=== PATIENT | male | born 1935 | race Native Hawaiian/Other Pacific Islander ===

== ENCOUNTER 2016-04-27 09:54 | Outpatient (CLI) | payer OTHER ==
[~2016-04-27 09:54] MED LIST: ASA LOW DOSE81 MG PO; BUDE1AER5 INH; CARV25TA PO; GLIP10TA55 PO; LIPITOR80 MG PO; LISI5TAB10 PO; METF500T PO; PLAVIX75 MG PO; PROAIR HFA IN
[2016-04-27 10:36] LABS: POTASSIUM 4.2 mmol/L (3.6-5.2); SODIUM 136 mmol/L (136-145)
== END 2016-04-27 19:53 | disposition home or self-care (01) ==
LOC: LABW 09:54
PROVIDERS: Nurse Practitioner Adult Health
DX: Z79.01 Long term (current) use of anticoagulants (principal); Z79.899 Other long term (current) drug therapy; I48.0 Paroxysmal atrial fibrillation; Z51.81 Encounter for therapeutic drug level monitoring
CPT/HCPCS: 36415; 80053; 85610

== ENCOUNTER 2016-05-04 10:09 | Outpatient (CLI) | payer OTHER | END 2016-05-04 20:09 | disposition home or self-care (01) | LOC: LABW 10:09 | DX: Z79.01 Long term (current) use of anticoagulants (principal); Z79.899 Other long term (current) drug therapy; I48.0 Paroxysmal atrial fibrillation; Z51.81 Encounter for therapeutic drug level monitoring | CPT/HCPCS: 36415; 85610 ==

== ENCOUNTER 2016-05-11 08:32 | Outpatient (CLI) | payer OTHER | END 2016-05-11 23:00 | disposition home or self-care (01) | LOC: LABW 08:32 | DX: Z79.01 Long term (current) use of anticoagulants (principal); Z79.899 Other long term (current) drug therapy; I48.0 Paroxysmal atrial fibrillation; Z51.81 Encounter for therapeutic drug level monitoring | CPT/HCPCS: 36415; 85610 ==

== ENCOUNTER 2016-05-18 08:18 | Outpatient (CLI) | payer OTHER | END 2016-05-18 20:10 | disposition home or self-care (01) | LOC: LABW 08:18 | DX: Z79.01 Long term (current) use of anticoagulants (principal); Z79.899 Other long term (current) drug therapy; I48.0 Paroxysmal atrial fibrillation; Z51.81 Encounter for therapeutic drug level monitoring | CPT/HCPCS: 36415; 85610 ==

== ENCOUNTER 2016-05-25 09:21 | Outpatient (CLI) | payer OTHER | END 2016-05-26 01:59 | disposition home or self-care (01) | LOC: LABW 09:21 | DX: Z79.01 Long term (current) use of anticoagulants (principal); Z79.899 Other long term (current) drug therapy; I48.0 Paroxysmal atrial fibrillation; Z51.81 Encounter for therapeutic drug level monitoring | CPT/HCPCS: 36415; 85610 ==

== ENCOUNTER 2016-06-01 07:42 | Outpatient (CLI) | payer OTHER | END 2016-06-01 19:31 | disposition home or self-care (01) | LOC: LABW 07:42 | DX: Z79.01 Long term (current) use of anticoagulants (principal); Z79.899 Other long term (current) drug therapy; I48.0 Paroxysmal atrial fibrillation; Z51.81 Encounter for therapeutic drug level monitoring | CPT/HCPCS: 36415; 85610 ==

== ENCOUNTER 2016-06-08 07:34 | Outpatient (CLI) | payer OTHER | END 2016-06-08 19:43 | disposition home or self-care (01) | LOC: LABW 07:34 | DX: Z79.01 Long term (current) use of anticoagulants (principal); Z79.899 Other long term (current) drug therapy; I48.0 Paroxysmal atrial fibrillation; Z51.81 Encounter for therapeutic drug level monitoring | CPT/HCPCS: 36415; 85610 ==

== ENCOUNTER 2016-06-15 07:32 | Outpatient (CLI) | payer OTHER | END 2016-06-15 19:18 | disposition home or self-care (01) | LOC: LABW 07:32 | DX: Z79.01 Long term (current) use of anticoagulants (principal); Z79.899 Other long term (current) drug therapy; Z51.81 Encounter for therapeutic drug level monitoring; I48.0 Paroxysmal atrial fibrillation | CPT/HCPCS: 36415; 85610 ==

== ENCOUNTER 2016-06-16 08:49 | Outpatient (CLI) | payer OTHER ==
[~2016-06-16] VITALS: Ht 198.1 cm; Wt 92.5 kg
== END 2016-06-16 19:12 | disposition home or self-care (01) ==
LOC: NM 08:49
DX: I48.0 Paroxysmal atrial fibrillation (principal); I25.10 Atherosclerotic heart disease of native coronary artery without angina pectoris
CPT/HCPCS: 93306; A9500; J2785

== ENCOUNTER 2016-06-22 08:00 | Outpatient (CLI) | payer OTHER | END 2016-06-22 19:22 | disposition home or self-care (01) | LOC: LABW 08:00 | DX: Z79.01 Long term (current) use of anticoagulants (principal); Z79.899 Other long term (current) drug therapy; I48.0 Paroxysmal atrial fibrillation; Z51.81 Encounter for therapeutic drug level monitoring | CPT/HCPCS: 36415; 85610 ==

== ENCOUNTER 2016-06-29 07:32 | Outpatient (CLI) | payer OTHER | END 2016-06-29 08:32 | disposition home or self-care (01) | LOC: LABW 07:32 | DX: Z79.01 Long term (current) use of anticoagulants (principal); Z79.899 Other long term (current) drug therapy; I48.0 Paroxysmal atrial fibrillation; Z51.81 Encounter for therapeutic drug level monitoring | CPT/HCPCS: 36415; 85610 ==

== ENCOUNTER 2016-07-06 07:39 | Outpatient (CLI) | payer OTHER | END 2016-07-06 19:09 | disposition home or self-care (01) | LOC: LABW 07:39 | DX: Z79.01 Long term (current) use of anticoagulants (principal); Z79.899 Other long term (current) drug therapy; I48.0 Paroxysmal atrial fibrillation; Z51.81 Encounter for therapeutic drug level monitoring | CPT/HCPCS: 36415; 85610 ==

== ENCOUNTER 2016-07-13 07:34 | Outpatient (CLI) | payer OTHER | END 2016-07-13 19:21 | disposition home or self-care (01) | LOC: LABW 07:34 | DX: Z79.01 Long term (current) use of anticoagulants (principal); Z79.899 Other long term (current) drug therapy; I48.0 Paroxysmal atrial fibrillation; Z51.81 Encounter for therapeutic drug level monitoring | CPT/HCPCS: 36415; 85610 ==

== ENCOUNTER 2016-07-20 08:07 | Outpatient (CLI) | payer OTHER | END 2016-07-20 19:22 | disposition home or self-care (01) | LOC: LABW 08:07 | DX: Z79.01 Long term (current) use of anticoagulants (principal); Z79.899 Other long term (current) drug therapy; I48.0 Paroxysmal atrial fibrillation; Z51.81 Encounter for therapeutic drug level monitoring | CPT/HCPCS: 36415; 85610 ==

== ENCOUNTER 2016-07-27 08:10 | Outpatient (CLI) | payer OTHER | END 2016-07-27 19:55 | disposition home or self-care (01) | LOC: LABW 08:10 | DX: I48.0 Paroxysmal atrial fibrillation (principal); Z79.01 Long term (current) use of anticoagulants; Z79.899 Other long term (current) drug therapy | CPT/HCPCS: 36415; 85610 ==

== ENCOUNTER 2016-08-03 07:53 | Outpatient (CLI) | payer OTHER | END 2016-08-03 19:04 | disposition home or self-care (01) | LOC: LABW 07:53 | DX: Z79.01 Long term (current) use of anticoagulants (principal); Z79.899 Other long term (current) drug therapy; I48.0 Paroxysmal atrial fibrillation; Z51.81 Encounter for therapeutic drug level monitoring | CPT/HCPCS: 36415; 85610 ==

== ENCOUNTER 2016-08-10 07:42 | Outpatient (CLI) | payer OTHER | END 2016-08-10 19:18 | disposition home or self-care (01) | LOC: LABW 07:42 | PROVIDERS: Nurse Practitioner Adult Health | DX: Z79.01 Long term (current) use of anticoagulants (principal); Z79.899 Other long term (current) drug therapy; I48.0 Paroxysmal atrial fibrillation; Z51.81 Encounter for therapeutic drug level monitoring; E78.2 Mixed hyperlipidemia | CPT/HCPCS: 36415; 80061; 80076; 84436; 84443; 84479; 85610 ==

== ENCOUNTER 2016-08-18 09:21 | Outpatient (CLI) | payer OTHER ==
[~2016-08-18] VITALS: Ht 167.6 cm; Wt 95.3 kg
[2016-08-18 12:50] VITALS: BP 120/73; TEMP 98.6
[2016-08-18 13:16] LABS: POTASSIUM 4.2 mmol/L (3.6-5.2); SODIUM 136 mmol/L (136-145)
[2016-08-18 15:01] LABS: PLATELET COUNT 263 K/uL (142-355)
== END 2016-08-18 12:50 | disposition home or self-care (01) ==
LOC: INF 09:21 → LAB 09:21 → LABW 09:21 → INF 12:50
PROVIDERS: Internal Medicine
DX: Z79.01 Long term (current) use of anticoagulants (principal); Z79.899 Other long term (current) drug therapy; I48.0 Paroxysmal atrial fibrillation; Z51.81 Encounter for therapeutic drug level monitoring
CPT/HCPCS: 36415; 80048; 85027; 85610; 96372; J3430

== ENCOUNTER 2016-08-20 09:12 | Outpatient (CLI) | payer OTHER | END 2016-08-20 19:45 | disposition home or self-care (01) | LOC: LABW 09:12 | DX: Z79.01 Long term (current) use of anticoagulants (principal); Z79.899 Other long term (current) drug therapy; I48.0 Paroxysmal atrial fibrillation; Z51.81 Encounter for therapeutic drug level monitoring | CPT/HCPCS: 36415; 85610 ==

== ENCOUNTER 2016-08-27 11:52 | Outpatient (CLI) | payer OTHER | END 2016-08-27 19:18 | disposition home or self-care (01) | LOC: LABW 11:52 | DX: Z79.01 Long term (current) use of anticoagulants (principal); Z79.899 Other long term (current) drug therapy; I48.0 Paroxysmal atrial fibrillation; Z51.81 Encounter for therapeutic drug level monitoring | CPT/HCPCS: 36415; 85610 ==

== ENCOUNTER 2016-08-31 09:20 | Outpatient (CLI) | payer OTHER | END 2016-08-31 19:25 | disposition home or self-care (01) | LOC: LABW 09:20 | DX: Z79.01 Long term (current) use of anticoagulants (principal); Z79.899 Other long term (current) drug therapy; I48.0 Paroxysmal atrial fibrillation; Z51.81 Encounter for therapeutic drug level monitoring | CPT/HCPCS: 36415; 85610 ==

== ENCOUNTER 2016-09-03 09:43 | Outpatient (CLI) | payer OTHER | END 2016-09-03 11:00 | disposition home or self-care (01) | LOC: LABW 09:43 | DX: Z79.01 Long term (current) use of anticoagulants (principal); Z79.899 Other long term (current) drug therapy; Z51.81 Encounter for therapeutic drug level monitoring; I48.0 Paroxysmal atrial fibrillation | CPT/HCPCS: 36415; 85610 ==

== ENCOUNTER 2016-09-10 08:30 | Outpatient (CLI) | payer OTHER | END 2016-09-10 19:38 | disposition home or self-care (01) | LOC: LABW 08:30 | DX: Z79.01 Long term (current) use of anticoagulants (principal); Z79.899 Other long term (current) drug therapy; I48.0 Paroxysmal atrial fibrillation; Z51.81 Encounter for therapeutic drug level monitoring | CPT/HCPCS: 36415; 85610 ==

== ENCOUNTER 2016-09-17 09:15 | Outpatient (CLI) | payer OTHER | END 2016-09-17 20:00 | disposition home or self-care (01) | LOC: LABW 09:15 | DX: Z79.01 Long term (current) use of anticoagulants (principal); Z79.899 Other long term (current) drug therapy; I48.0 Paroxysmal atrial fibrillation; Z51.81 Encounter for therapeutic drug level monitoring | CPT/HCPCS: 36415; 85610 ==

== ENCOUNTER 2016-09-24 09:04 | Outpatient (CLI) | payer OTHER | END 2016-09-24 10:05 | disposition home or self-care (01) | LOC: LABW 09:04 | DX: Z79.01 Long term (current) use of anticoagulants (principal); Z79.899 Other long term (current) drug therapy; I48.0 Paroxysmal atrial fibrillation; Z51.81 Encounter for therapeutic drug level monitoring | CPT/HCPCS: 36415; 85610 ==

== ENCOUNTER 2016-10-01 09:18 | Outpatient (CLI) | payer OTHER | END 2016-10-01 17:53 | disposition home or self-care (01) | LOC: LABW 09:18 | DX: Z79.01 Long term (current) use of anticoagulants (principal); Z79.899 Other long term (current) drug therapy; Z51.81 Encounter for therapeutic drug level monitoring; I48.0 Paroxysmal atrial fibrillation | CPT/HCPCS: 36415; 85610 ==

== ENCOUNTER 2016-10-08 09:27 | Outpatient (CLI) | payer OTHER | END 2016-10-08 10:30 | disposition home or self-care (01) | LOC: LABW 09:27 | DX: Z79.01 Long term (current) use of anticoagulants (principal); Z79.899 Other long term (current) drug therapy; I48.0 Paroxysmal atrial fibrillation; Z51.81 Encounter for therapeutic drug level monitoring | CPT/HCPCS: 36415; 85610 ==

== ENCOUNTER 2016-10-15 08:37 | Outpatient (CLI) | payer OTHER | END 2016-10-15 19:14 | disposition home or self-care (01) | LOC: LABW 08:37 | DX: Z79.01 Long term (current) use of anticoagulants (principal); Z79.899 Other long term (current) drug therapy; I48.0 Paroxysmal atrial fibrillation; Z51.81 Encounter for therapeutic drug level monitoring | CPT/HCPCS: 36415; 85610 ==

== ENCOUNTER 2016-10-22 09:58 | Outpatient (CLI) | payer OTHER | END 2016-10-22 11:00 | disposition home or self-care (01) | LOC: LABW 09:58 | DX: Z79.01 Long term (current) use of anticoagulants (principal); Z79.899 Other long term (current) drug therapy; I48.0 Paroxysmal atrial fibrillation; Z51.81 Encounter for therapeutic drug level monitoring | CPT/HCPCS: 36415; 85610 ==

== ENCOUNTER 2016-10-29 08:54 | Outpatient (CLI) | payer OTHER | END 2016-10-29 19:56 | disposition home or self-care (01) | LOC: LABW 08:54 | DX: Z79.01 Long term (current) use of anticoagulants (principal); Z79.899 Other long term (current) drug therapy; I48.0 Paroxysmal atrial fibrillation; Z51.81 Encounter for therapeutic drug level monitoring | CPT/HCPCS: 36415; 85610 ==

== ENCOUNTER 2016-11-05 08:06 | Outpatient (CLI) | payer OTHER | END 2016-11-05 09:10 | disposition home or self-care (01) | LOC: LABW 08:06 | DX: Z79.01 Long term (current) use of anticoagulants (principal); Z79.899 Other long term (current) drug therapy; I48.0 Paroxysmal atrial fibrillation; Z51.81 Encounter for therapeutic drug level monitoring | CPT/HCPCS: 36415; 85610 ==

== ENCOUNTER 2016-11-19 09:28 | Outpatient (CLI) | payer OTHER | END 2016-11-19 10:30 | disposition home or self-care (01) | LOC: LABW 09:28 | DX: Z79.01 Long term (current) use of anticoagulants (principal); Z79.899 Other long term (current) drug therapy; I48.0 Paroxysmal atrial fibrillation; Z51.81 Encounter for therapeutic drug level monitoring | CPT/HCPCS: 36415; 85610 ==

== ENCOUNTER 2016-11-26 08:47 | Outpatient (CLI) | payer OTHER | END 2016-11-26 18:58 | disposition home or self-care (01) | LOC: LABW 08:47 | DX: Z79.01 Long term (current) use of anticoagulants (principal); Z79.899 Other long term (current) drug therapy; I48.0 Paroxysmal atrial fibrillation; Z51.81 Encounter for therapeutic drug level monitoring | CPT/HCPCS: 36415; 85610 ==

== ENCOUNTER 2016-12-03 09:13 | Outpatient (CLI) | payer OTHER | END 2016-12-03 10:15 | disposition home or self-care (01) | LOC: LABW 09:13 | DX: Z79.01 Long term (current) use of anticoagulants (principal); I48.0 Paroxysmal atrial fibrillation; Z51.81 Encounter for therapeutic drug level monitoring | CPT/HCPCS: 36415; 85610 ==

== ENCOUNTER 2016-12-17 09:02 | Outpatient (CLI) | payer OTHER | END 2016-12-17 21:52 | disposition home or self-care (01) | LOC: LABW 09:02 | DX: Z79.01 Long term (current) use of anticoagulants (principal); Z79.899 Other long term (current) drug therapy; Z51.81 Encounter for therapeutic drug level monitoring; I48.0 Paroxysmal atrial fibrillation | CPT/HCPCS: 36415; 85610 ==

== ENCOUNTER 2017-01-07 09:29 | Outpatient (CLI) | payer OTHER | END 2017-01-07 10:30 | disposition home or self-care (01) | LOC: LABW 09:29 | DX: Z79.01 Long term (current) use of anticoagulants (principal); Z79.899 Other long term (current) drug therapy; I48.0 Paroxysmal atrial fibrillation; Z51.81 Encounter for therapeutic drug level monitoring | CPT/HCPCS: 36415; 85610 ==

== ENCOUNTER 2017-01-28 07:49 | Outpatient (CLI) | payer OTHER | END 2017-01-28 08:50 | disposition home or self-care (01) | LOC: LABW 07:49 | PROVIDERS: Nurse Practitioner Adult Health | DX: E78.2 Mixed hyperlipidemia (principal); Z79.899 Other long term (current) drug therapy; I48.0 Paroxysmal atrial fibrillation; Z51.81 Encounter for therapeutic drug level monitoring; Z79.01 Long term (current) use of anticoagulants | CPT/HCPCS: 36415; 80061; 80076; 84443; 85610 ==

== ENCOUNTER 2017-02-17 09:48 | Outpatient (CLI) | payer OTHER | END 2017-02-17 22:48 | disposition home or self-care (01) | LOC: LABW 09:48 | DX: Z79.01 Long term (current) use of anticoagulants (principal); Z79.899 Other long term (current) drug therapy; I48.0 Paroxysmal atrial fibrillation; Z51.81 Encounter for therapeutic drug level monitoring | CPT/HCPCS: 36415; 85610 ==

== ENCOUNTER 2017-02-24 08:57 | Outpatient (CLI) | payer OTHER | END 2017-02-24 19:33 | disposition home or self-care (01) | LOC: LABW 08:57 | DX: Z79.01 Long term (current) use of anticoagulants (principal); Z79.899 Other long term (current) drug therapy; I48.0 Paroxysmal atrial fibrillation; Z51.81 Encounter for therapeutic drug level monitoring | CPT/HCPCS: 36415; 85610 ==

== ENCOUNTER 2017-03-03 09:33 | Outpatient (CLI) | payer OTHER | END 2017-03-03 21:10 | disposition home or self-care (01) | LOC: LABW 09:33 | DX: Z79.01 Long term (current) use of anticoagulants (principal); Z51.81 Encounter for therapeutic drug level monitoring; Z79.899 Other long term (current) drug therapy; I48.0 Paroxysmal atrial fibrillation | CPT/HCPCS: 36415; 85610 ==

== ENCOUNTER 2017-03-10 07:34 | Outpatient (CLI) | payer OTHER ==
[2017-03-10 08:04] LABS: PLATELET COUNT 234 K/uL (142-355)
[2017-03-10 08:08] LABS: POTASSIUM 4.1 mmol/L (3.6-5.2); SODIUM 137 mmol/L (136-145)
== END 2017-03-10 08:35 | disposition home or self-care (01) ==
LOC: LABW 07:34
PROVIDERS: Nurse Practitioner Adult Health
DX: Z79.01 Long term (current) use of anticoagulants (principal); Z79.899 Other long term (current) drug therapy; I48.0 Paroxysmal atrial fibrillation; Z51.81 Encounter for therapeutic drug level monitoring; E11.9 Type 2 diabetes mellitus without complications
CPT/HCPCS: 36415; 80053; 81000; 83036; 85027; 85610

== ENCOUNTER 2017-03-17 09:48 | Outpatient (CLI) | payer OTHER | END 2017-03-17 19:20 | disposition home or self-care (01) | LOC: LABW 09:48 | DX: Z79.01 Long term (current) use of anticoagulants (principal); Z51.81 Encounter for therapeutic drug level monitoring; Z79.899 Other long term (current) drug therapy; I48.0 Paroxysmal atrial fibrillation | CPT/HCPCS: 36415; 85610 ==

== ENCOUNTER 2017-03-24 09:05 | Outpatient (CLI) | payer OTHER | END 2017-03-24 19:05 | disposition home or self-care (01) | LOC: LABW 09:05 | DX: Z79.01 Long term (current) use of anticoagulants (principal); Z51.81 Encounter for therapeutic drug level monitoring; I48.0 Paroxysmal atrial fibrillation | CPT/HCPCS: 36415; 85610 ==

== ENCOUNTER 2017-03-31 09:19 | Outpatient (CLI) | payer OTHER | END 2017-03-31 21:34 | disposition home or self-care (01) | LOC: LABW 09:19 | DX: Z79.01 Long term (current) use of anticoagulants (principal); Z79.899 Other long term (current) drug therapy; Z51.81 Encounter for therapeutic drug level monitoring; I48.0 Paroxysmal atrial fibrillation | CPT/HCPCS: 36415; 85610 ==

== ENCOUNTER 2017-04-07 08:51 | Outpatient (CLI) | payer OTHER | END 2017-04-07 19:36 | disposition home or self-care (01) | LOC: LABW 08:51 | DX: Z79.01 Long term (current) use of anticoagulants (principal); Z79.899 Other long term (current) drug therapy; I48.0 Paroxysmal atrial fibrillation; Z51.81 Encounter for therapeutic drug level monitoring | CPT/HCPCS: 36415; 85610 ==

== ENCOUNTER 2017-04-14 07:56 | Outpatient (CLI) | payer OTHER | END 2017-04-14 19:54 | disposition home or self-care (01) | LOC: LABW 07:56 | DX: Z79.01 Long term (current) use of anticoagulants (principal); Z79.899 Other long term (current) drug therapy; I48.0 Paroxysmal atrial fibrillation; Z51.81 Encounter for therapeutic drug level monitoring | CPT/HCPCS: 36415; 85610 ==

== ENCOUNTER → 2017-04-21 09:17 | Outpatient (CLI) | payer OTHER | END | disposition home or self-care (01) | LOC: LABW 09:17 | DX: Z79.01 Long term (current) use of anticoagulants (principal); Z79.899 Other long term (current) drug therapy; Z51.81 Encounter for therapeutic drug level monitoring; I48.0 Paroxysmal atrial fibrillation | CPT/HCPCS: 36415; 85610 ==

== ENCOUNTER 2017-05-05 09:18 | Outpatient (CLI) | payer OTHER | END 2017-05-05 19:18 | disposition home or self-care (01) | LOC: LABW 09:18 | DX: Z79.01 Long term (current) use of anticoagulants (principal); Z79.899 Other long term (current) drug therapy; Z51.81 Encounter for therapeutic drug level monitoring; I48.0 Paroxysmal atrial fibrillation | CPT/HCPCS: 36415; 85610 ==

== ENCOUNTER 2017-05-12 09:55 | Outpatient (CLI) | payer OTHER | END 2017-05-12 19:21 | disposition home or self-care (01) | LOC: LABW 09:55 | DX: Z79.01 Long term (current) use of anticoagulants (principal); Z51.81 Encounter for therapeutic drug level monitoring; Z79.899 Other long term (current) drug therapy; I48.0 Paroxysmal atrial fibrillation | CPT/HCPCS: 36415; 85610 ==

== ENCOUNTER 2017-05-19 09:03 | Outpatient (CLI) | payer OTHER | END 2017-05-19 18:47 | disposition home or self-care (01) | LOC: LABW 09:03 | DX: Z79.01 Long term (current) use of anticoagulants (principal); Z79.899 Other long term (current) drug therapy; I48.0 Paroxysmal atrial fibrillation; Z51.81 Encounter for therapeutic drug level monitoring | CPT/HCPCS: 36415; 85610 ==

== ENCOUNTER 2017-06-02 10:10 | Outpatient (CLI) | payer OTHER | END 2017-06-02 21:46 | disposition home or self-care (01) | LOC: LABW 10:10 | DX: Z79.01 Long term (current) use of anticoagulants (principal); Z79.899 Other long term (current) drug therapy; I48.0 Paroxysmal atrial fibrillation; Z51.81 Encounter for therapeutic drug level monitoring | CPT/HCPCS: 36415; 85610 ==

== ENCOUNTER 2017-06-23 08:24 | Outpatient (CLI) | payer OTHER | END 2017-06-23 18:02 | disposition home or self-care (01) | LOC: LABW 08:24 | DX: Z79.01 Long term (current) use of anticoagulants (principal); Z79.899 Other long term (current) drug therapy; Z51.81 Encounter for therapeutic drug level monitoring; I48.0 Paroxysmal atrial fibrillation | CPT/HCPCS: 36415; 85610 ==

== ENCOUNTER 2017-06-30 08:34 | Outpatient (CLI) | payer OTHER | END 2017-06-30 22:24 | disposition home or self-care (01) | LOC: LABW 08:34 | DX: Z79.01 Long term (current) use of anticoagulants (principal); Z79.899 Other long term (current) drug therapy; Z51.81 Encounter for therapeutic drug level monitoring; I48.0 Paroxysmal atrial fibrillation | CPT/HCPCS: 36415; 85610 ==

== ENCOUNTER 2017-07-14 09:10 | Outpatient (CLI) | payer OTHER | END 2017-07-14 20:53 | disposition home or self-care (01) | LOC: LABW 09:10 | DX: Z79.01 Long term (current) use of anticoagulants (principal); I48.0 Paroxysmal atrial fibrillation; Z51.81 Encounter for therapeutic drug level monitoring | CPT/HCPCS: 36415; 85610 ==

== ENCOUNTER 2017-07-28 09:20 | Outpatient (CLI) | payer OTHER | END 2017-07-28 21:39 | disposition home or self-care (01) | LOC: LABW 09:20 | DX: Z79.01 Long term (current) use of anticoagulants (principal); I48.0 Paroxysmal atrial fibrillation; Z51.81 Encounter for therapeutic drug level monitoring | CPT/HCPCS: 36415; 85610 ==

== ENCOUNTER 2017-08-04 08:58 | Outpatient (CLI) | payer OTHER | END 2017-08-04 21:26 | disposition home or self-care (01) | LOC: LABW 08:58 | DX: Z79.01 Long term (current) use of anticoagulants (principal); Z51.81 Encounter for therapeutic drug level monitoring; I48.0 Paroxysmal atrial fibrillation | CPT/HCPCS: 36415; 85610 ==

== ENCOUNTER 2017-08-11 09:18 | Outpatient (CLI) | payer OTHER | END 2017-08-11 21:52 | disposition home or self-care (01) | LOC: LABW 09:18 | DX: Z79.01 Long term (current) use of anticoagulants (principal); Z79.899 Other long term (current) drug therapy; Z51.81 Encounter for therapeutic drug level monitoring; I48.0 Paroxysmal atrial fibrillation | CPT/HCPCS: 36415; 85610 ==

== ENCOUNTER 2017-08-16 08:04 | Outpatient (CLI) | payer OTHER | END 2017-08-16 19:55 | disposition home or self-care (01) | LOC: LABW 08:04 | PROVIDERS: Nurse Practitioner Adult Health | DX: E78.2 Mixed hyperlipidemia (principal); Z79.899 Other long term (current) drug therapy; Z51.81 Encounter for therapeutic drug level monitoring | CPT/HCPCS: 36415; 80061; 80076; 84436; 84443; 84479 ==

== ENCOUNTER 2017-08-25 09:24 | Outpatient (CLI) | payer OTHER | END 2017-08-25 23:17 | disposition home or self-care (01) | LOC: LABW 09:24 | DX: Z79.01 Long term (current) use of anticoagulants (principal); Z79.899 Other long term (current) drug therapy; I48.0 Paroxysmal atrial fibrillation; Z51.81 Encounter for therapeutic drug level monitoring | CPT/HCPCS: 36415; 85610 ==

== ENCOUNTER 2017-09-01 10:47 | Outpatient (CLI) | payer OTHER | END 2017-09-01 21:44 | disposition home or self-care (01) | LOC: LABW 10:47 | DX: I25.10 Atherosclerotic heart disease of native coronary artery without angina pectoris (principal); E78.2 Mixed hyperlipidemia; Z79.899 Other long term (current) drug therapy; Z51.81 Encounter for therapeutic drug level monitoring; I48.0 Paroxysmal atrial fibrillation | CPT/HCPCS: 36415; 84436; 84443; 84479 ==

== ENCOUNTER 2017-09-15 08:59 | Outpatient (CLI) | payer OTHER | END 2017-09-15 19:20 | disposition home or self-care (01) | LOC: LABW 08:59 | DX: Z79.01 Long term (current) use of anticoagulants (principal); Z79.899 Other long term (current) drug therapy; Z51.81 Encounter for therapeutic drug level monitoring; I48.0 Paroxysmal atrial fibrillation | CPT/HCPCS: 36415; 85610 ==

== ENCOUNTER 2017-09-28 10:12 | Outpatient (CLI) | payer OTHER | END 2017-09-28 23:13 | disposition home or self-care (01) | LOC: LABW 10:12 | DX: Z79.01 Long term (current) use of anticoagulants (principal); Z79.899 Other long term (current) drug therapy; I48.0 Paroxysmal atrial fibrillation; Z51.81 Encounter for therapeutic drug level monitoring | CPT/HCPCS: 36415; 85610 ==

== ENCOUNTER 2017-10-06 07:46 | Outpatient (CLI) | payer OTHER | END 2017-10-06 23:18 | disposition home or self-care (01) | LOC: LABW 07:46 | DX: Z79.01 Long term (current) use of anticoagulants (principal); Z79.899 Other long term (current) drug therapy; I48.0 Paroxysmal atrial fibrillation | CPT/HCPCS: 36415; 85610 ==

== ENCOUNTER 2017-10-13 09:22 | Outpatient (CLI) | payer OTHER | END 2017-10-13 22:35 | disposition home or self-care (01) | LOC: LABW 09:22 | DX: Z79.01 Long term (current) use of anticoagulants (principal); Z79.899 Other long term (current) drug therapy; Z51.81 Encounter for therapeutic drug level monitoring; I48.0 Paroxysmal atrial fibrillation | CPT/HCPCS: 36415; 85610 ==

== ENCOUNTER 2017-10-20 09:31 | Outpatient (CLI) | payer OTHER | END 2017-10-20 22:15 | disposition home or self-care (01) | LOC: LABW 09:31 | DX: Z79.01 Long term (current) use of anticoagulants (principal); Z51.81 Encounter for therapeutic drug level monitoring; I48.0 Paroxysmal atrial fibrillation | CPT/HCPCS: 36415; 85610 ==

== ENCOUNTER 2017-11-03 08:55 | Outpatient (CLI) | payer OTHER | END 2017-11-03 22:10 | disposition home or self-care (01) | LOC: LABW 08:55 | DX: Z79.01 Long term (current) use of anticoagulants (principal); Z79.899 Other long term (current) drug therapy; I48.0 Paroxysmal atrial fibrillation | CPT/HCPCS: 36415; 85610 ==

== ENCOUNTER 2017-11-22 10:04 | Outpatient (CLI) | payer OTHER | END 2017-11-22 20:40 | disposition home or self-care (01) | LOC: CT 10:04 | DX: S09.90XA Unspecified injury of head, initial encounter (principal) ==

== ENCOUNTER 2017-11-24 08:58 | Outpatient (CLI) | payer OTHER | END 2017-11-24 23:53 | disposition home or self-care (01) | LOC: LABW 08:58 | DX: Z79.01 Long term (current) use of anticoagulants (principal); Z79.899 Other long term (current) drug therapy; I48.0 Paroxysmal atrial fibrillation | CPT/HCPCS: 36415; 85610 ==

== ENCOUNTER 2017-12-15 09:22 | Outpatient (CLI) | payer OTHER | END 2017-12-15 19:36 | disposition home or self-care (01) | LOC: LABW 09:22 | DX: I48.0 Paroxysmal atrial fibrillation (principal); Z79.899 Other long term (current) drug therapy; Z79.01 Long term (current) use of anticoagulants | CPT/HCPCS: 36415; 85610 ==

== ENCOUNTER 2018-01-05 08:11 | Outpatient (CLI) | payer OTHER | END 2018-01-05 18:50 | disposition home or self-care (01) | LOC: LABW 08:11 | PROVIDERS: Nurse Practitioner Adult Health | DX: E78.2 Mixed hyperlipidemia (principal); Z79.01 Long term (current) use of anticoagulants; Z79.899 Other long term (current) drug therapy; I48.0 Paroxysmal atrial fibrillation | CPT/HCPCS: 36415; 80061; 80076; 84436; 84443; 84479; 85610 ==

== ENCOUNTER 2018-01-26 08:33 | Outpatient (CLI) | payer OTHER | END 2018-01-26 19:48 | disposition home or self-care (01) | LOC: LABW 08:33 | DX: Z79.01 Long term (current) use of anticoagulants (principal); Z79.899 Other long term (current) drug therapy; I48.0 Paroxysmal atrial fibrillation | CPT/HCPCS: 36415; 85610 ==

== ENCOUNTER 2018-02-02 08:27 | Outpatient (CLI) | payer OTHER | END 2018-02-02 20:29 | disposition home or self-care (01) | LOC: LABW 08:27 | DX: I48.0 Paroxysmal atrial fibrillation (principal); Z79.01 Long term (current) use of anticoagulants; Z79.899 Other long term (current) drug therapy | CPT/HCPCS: 36415; 85610 ==

== ENCOUNTER 2018-02-09 10:27 | Outpatient (CLI) | payer OTHER | END 2018-02-09 19:56 | disposition home or self-care (01) | LOC: LABW 10:27 | DX: I48.0 Paroxysmal atrial fibrillation (principal); Z79.01 Long term (current) use of anticoagulants; Z79.899 Other long term (current) drug therapy | CPT/HCPCS: 36415; 85610 ==

== ENCOUNTER 2018-02-16 09:07 | Outpatient (CLI) | payer OTHER | END 2018-02-16 19:35 | disposition home or self-care (01) | LOC: LABW 09:07 | DX: I48.0 Paroxysmal atrial fibrillation (principal); Z79.899 Other long term (current) drug therapy; Z79.01 Long term (current) use of anticoagulants | CPT/HCPCS: 36415; 85610 ==

== ENCOUNTER 2018-02-23 08:30 | Outpatient (CLI) | payer OTHER | END 2018-02-23 20:10 | disposition home or self-care (01) | LOC: LABW 08:30 | DX: I48.0 Paroxysmal atrial fibrillation (principal); Z79.01 Long term (current) use of anticoagulants; Z79.899 Other long term (current) drug therapy | CPT/HCPCS: 36415; 85610 ==

== ENCOUNTER 2018-03-02 08:59 | Outpatient (CLI) | payer OTHER | END 2018-03-02 21:13 | disposition home or self-care (01) | LOC: LABW 08:59 | DX: Z79.01 Long term (current) use of anticoagulants (principal); Z79.899 Other long term (current) drug therapy; I48.0 Paroxysmal atrial fibrillation | CPT/HCPCS: 36415; 85610 ==

== ENCOUNTER 2018-03-09 07:45 | Outpatient (CLI) | payer OTHER | END 2018-03-09 22:58 | disposition home or self-care (01) | LOC: LABW 07:45 | DX: I48.0 Paroxysmal atrial fibrillation (principal); Z79.01 Long term (current) use of anticoagulants; Z79.899 Other long term (current) drug therapy | CPT/HCPCS: 36415; 85610 ==

== ENCOUNTER 2018-03-23 09:15 | Outpatient (CLI) | payer OTHER | END 2018-03-23 19:01 | disposition home or self-care (01) | LOC: LABW 09:15 | DX: I48.0 Paroxysmal atrial fibrillation (principal); Z79.899 Other long term (current) drug therapy; Z79.01 Long term (current) use of anticoagulants | CPT/HCPCS: 36415; 85610 ==

== ENCOUNTER 2018-03-30 09:12 | Outpatient (CLI) | payer OTHER | END 2018-03-30 21:32 | disposition home or self-care (01) | LOC: LABW 09:12 | DX: I48.0 Paroxysmal atrial fibrillation (principal); Z79.01 Long term (current) use of anticoagulants; Z79.899 Other long term (current) drug therapy | CPT/HCPCS: 36415; 85610 ==

== ENCOUNTER 2018-04-06 08:38 | Outpatient (CLI) | payer OTHER | END 2018-04-06 22:06 | disposition home or self-care (01) | LOC: LABW 08:38 | DX: Z79.01 Long term (current) use of anticoagulants (principal); Z79.899 Other long term (current) drug therapy; I48.0 Paroxysmal atrial fibrillation | CPT/HCPCS: 36415; 85610 ==

== ENCOUNTER 2018-04-11 07:47 | Outpatient (CLI) | payer OTHER ==
[2018-04-11 08:24] LABS: PLATELET COUNT 226 K/uL (142-355)
== END 2018-04-11 22:16 | disposition home or self-care (01) ==
LOC: LABW 07:47
PROVIDERS: Internal Medicine
DX: Z79.01 Long term (current) use of anticoagulants (principal); Z79.899 Other long term (current) drug therapy; I48.0 Paroxysmal atrial fibrillation; E11.9 Type 2 diabetes mellitus without complications; E78.00 Pure hypercholesterolemia, unspecified; R35.1 Nocturia; E55.9 Vitamin D deficiency, unspecified
CPT/HCPCS: 36415; 80053; 80061; 82306; 83036; 84153; 84439; 84443; 85027; 85610

== ENCOUNTER 2018-04-18 09:09 | Outpatient (CLI) | payer OTHER | END 2018-04-18 22:11 | disposition home or self-care (01) | LOC: LABW 09:09 | DX: I48.0 Paroxysmal atrial fibrillation (principal); Z79.899 Other long term (current) drug therapy; Z79.01 Long term (current) use of anticoagulants | CPT/HCPCS: 36415; 85610 ==

== ENCOUNTER 2018-04-25 09:12 | Outpatient (CLI) | payer OTHER | END 2018-04-25 19:11 | disposition home or self-care (01) | LOC: LABW 09:12 | DX: Z79.899 Other long term (current) drug therapy (principal); I48.0 Paroxysmal atrial fibrillation; Z79.01 Long term (current) use of anticoagulants | CPT/HCPCS: 36415; 85610 ==

== ENCOUNTER 2018-05-02 09:54 | Outpatient (CLI) | payer OTHER | END 2018-05-02 20:51 | disposition home or self-care (01) | LOC: LABW 09:54 | DX: I48.0 Paroxysmal atrial fibrillation (principal); Z79.01 Long term (current) use of anticoagulants; Z79.899 Other long term (current) drug therapy | CPT/HCPCS: 36415; 85610 ==

== ENCOUNTER 2018-05-09 09:05 | Outpatient (CLI) | payer OTHER | END 2018-05-09 19:40 | disposition home or self-care (01) | LOC: LABW 09:05 | DX: I48.0 Paroxysmal atrial fibrillation (principal); Z79.899 Other long term (current) drug therapy; Z79.01 Long term (current) use of anticoagulants | CPT/HCPCS: 36415; 85610 ==

== ENCOUNTER 2018-05-16 09:07 | Outpatient (CLI) | payer OTHER | END 2018-05-16 19:56 | disposition home or self-care (01) | LOC: LABW 09:07 | DX: I48.0 Paroxysmal atrial fibrillation (principal); Z79.01 Long term (current) use of anticoagulants; Z79.899 Other long term (current) drug therapy | CPT/HCPCS: 36415; 85610 ==

== ENCOUNTER 2018-05-23 08:25 | Outpatient (CLI) | payer OTHER | END 2018-05-23 19:55 | disposition home or self-care (01) | LOC: LABW 08:25 | DX: I48.0 Paroxysmal atrial fibrillation (principal); Z79.01 Long term (current) use of anticoagulants | CPT/HCPCS: 36415; 85610 ==

== ENCOUNTER 2018-06-06 09:14 | Outpatient (CLI) | payer OTHER | END 2018-06-06 19:44 | disposition home or self-care (01) | LOC: LABW 09:14 | DX: Z79.01 Long term (current) use of anticoagulants (principal); Z79.899 Other long term (current) drug therapy; I48.0 Paroxysmal atrial fibrillation | CPT/HCPCS: 36415; 85610 ==

== ENCOUNTER 2018-06-13 11:04 | Outpatient (CLI) | payer OTHER | END 2018-06-13 22:39 | disposition home or self-care (01) | LOC: LABW 11:04 | DX: I48.0 Paroxysmal atrial fibrillation (principal); Z79.899 Other long term (current) drug therapy; Z79.01 Long term (current) use of anticoagulants | CPT/HCPCS: 36415; 85610 ==

== ENCOUNTER 2018-06-20 07:28 | Outpatient (CLI) | payer OTHER | END 2018-06-20 19:18 | disposition home or self-care (01) | LOC: LABW 07:28 | DX: Z79.01 Long term (current) use of anticoagulants (principal); Z79.899 Other long term (current) drug therapy; I48.0 Paroxysmal atrial fibrillation | CPT/HCPCS: 36415; 85610 ==

== ENCOUNTER 2018-07-04 09:23 | Outpatient (CLI) | payer OTHER | END 2018-07-04 22:58 | disposition home or self-care (01) | LOC: LABW 09:23 | DX: Z79.01 Long term (current) use of anticoagulants (principal); Z79.899 Other long term (current) drug therapy; I48.0 Paroxysmal atrial fibrillation | CPT/HCPCS: 36415; 85610 ==

== ENCOUNTER → 2018-07-11 | Outpatient (CLI) | payer OTHER | LOC: LABW 09:00 | DX: I48.0 Paroxysmal atrial fibrillation (principal); Z79.899 Other long term (current) drug therapy; Z79.01 Long term (current) use of anticoagulants | CPT/HCPCS: 36415; 85610 ==

== ENCOUNTER 2018-07-18 09:28 | Outpatient (CLI) | payer OTHER | END 2018-07-18 19:32 | disposition home or self-care (01) | LOC: LABW 09:28 | DX: Z79.01 Long term (current) use of anticoagulants (principal); Z79.899 Other long term (current) drug therapy; I48.0 Paroxysmal atrial fibrillation | CPT/HCPCS: 36415; 85610 ==

== ENCOUNTER 2018-07-25 08:48 | Outpatient (CLI) | payer OTHER | END 2018-07-25 19:21 | disposition home or self-care (01) | LOC: LABW 08:48 | DX: Z79.01 Long term (current) use of anticoagulants (principal); Z79.899 Other long term (current) drug therapy; I48.0 Paroxysmal atrial fibrillation | CPT/HCPCS: 36415; 85610 ==

== ENCOUNTER 2018-08-08 08:22 | Outpatient (CLI) | payer OTHER | END 2018-08-08 22:43 | disposition home or self-care (01) | LOC: LABW 08:22 | DX: Z79.01 Long term (current) use of anticoagulants (principal); Z79.899 Other long term (current) drug therapy; I48.0 Paroxysmal atrial fibrillation | CPT/HCPCS: 36415; 85610 ==

== ENCOUNTER 2018-08-15 08:37 | Outpatient (CLI) | payer OTHER | END 2018-08-15 19:15 | disposition home or self-care (01) | LOC: LABW 08:37 | DX: Z79.01 Long term (current) use of anticoagulants (principal); Z79.899 Other long term (current) drug therapy; I48.0 Paroxysmal atrial fibrillation | CPT/HCPCS: 36415; 85610 ==

== ENCOUNTER 2018-08-22 09:10 | Outpatient (CLI) | payer OTHER | END 2018-08-22 22:21 | disposition home or self-care (01) | LOC: LABW 09:10 | DX: I48.0 Paroxysmal atrial fibrillation (principal); Z79.899 Other long term (current) drug therapy; Z79.01 Long term (current) use of anticoagulants | CPT/HCPCS: 36415; 85610 ==

== ENCOUNTER 2018-08-29 08:45 | Outpatient (CLI) | payer OTHER | END 2018-08-29 19:10 | disposition home or self-care (01) | LOC: LABW 08:45 | DX: I48.0 Paroxysmal atrial fibrillation (principal); Z79.01 Long term (current) use of anticoagulants; Z79.899 Other long term (current) drug therapy | CPT/HCPCS: 36415; 85610 ==

== ENCOUNTER 2018-09-05 08:42 | Outpatient (CLI) | payer OTHER | END 2018-09-05 19:16 | disposition home or self-care (01) | LOC: LABW 08:42 | DX: I48.0 Paroxysmal atrial fibrillation (principal); Z79.01 Long term (current) use of anticoagulants; Z79.899 Other long term (current) drug therapy | CPT/HCPCS: 36415; 85610 ==

== ENCOUNTER 2018-09-27 09:23 | Outpatient (CLI) | payer OTHER | END 2018-09-27 19:10 | disposition home or self-care (01) | LOC: LABW 09:23 | PROVIDERS: Nurse Practitioner Adult Health | DX: I25.10 Atherosclerotic heart disease of native coronary artery without angina pectoris (principal); E78.2 Mixed hyperlipidemia; Z79.899 Other long term (current) drug therapy; I48.0 Paroxysmal atrial fibrillation | CPT/HCPCS: 36415; 80061; 80076; 84436; 84443; 84479 ==

== ENCOUNTER 2018-11-23 08:29 | Outpatient (CLI) | payer OTHER ==
[2018-11-23 09:05] LABS: PLATELET COUNT 289 K/uL (142-355)
[2018-11-23 09:12] LABS: POTASSIUM 4.3 mmol/L (3.6-5.2)
== END 2018-11-23 19:54 | disposition home or self-care (01) ==
LOC: LABW 08:29
PROVIDERS: Internal Medicine
DX: N40.1 Benign prostatic hyperplasia with lower urinary tract symptoms (principal); E11.42 Type 2 diabetes mellitus with diabetic polyneuropathy; J44.9 Chronic obstructive pulmonary disease, unspecified
CPT/HCPCS: 36415; 80053; 81000; 83036; 84153; 85027; 87077; 87086; 87088; 87186

== ENCOUNTER → 2019-04-07 07:47 | Outpatient (CLI) | payer OTHER | END | disposition home or self-care (01) | LOC: LABW 07:47 | PROVIDERS: Nurse Practitioner Adult Health | DX: E78.2 Mixed hyperlipidemia (principal); Z79.899 Other long term (current) drug therapy | CPT/HCPCS: 36415; 80061; 80076; 84436; 84443; 84479 ==

== ENCOUNTER 2019-06-05 08:37 | Outpatient (CLI) | payer OTHER ==
[2019-06-05 09:29] LABS: POTASSIUM 4.4 mmol/L (3.6-5.2)
== END 2019-06-05 19:13 | disposition home or self-care (01) ==
LOC: LABW 08:37
PROVIDERS: Internal Medicine
DX: E11.9 Type 2 diabetes mellitus without complications (principal); I10 Essential (primary) hypertension; E03.8 Other specified hypothyroidism
CPT/HCPCS: 36415; 80053; 80061; 81000; 83036; 84439; 84443

== ENCOUNTER 2019-10-03 08:12 | Outpatient (CLI) | payer OTHER | END 2019-10-03 22:29 | disposition home or self-care (01) | LOC: LABW 08:12 | PROVIDERS: Nurse Practitioner Adult Health | DX: E78.2 Mixed hyperlipidemia (principal); Z79.899 Other long term (current) drug therapy | CPT/HCPCS: 36415; 80061; 80076; 84436; 84443; 84479 ==

== ENCOUNTER 2019-11-21 08:18 | Outpatient (CLI) | payer OTHER ==
[~2019-11-21] VITALS: Ht 167.6 cm; Wt 93.0 kg
== END 2019-11-21 20:04 | disposition home or self-care (01) ==
LOC: NM 08:18
DX: I25.10 Atherosclerotic heart disease of native coronary artery without angina pectoris (principal)
CPT/HCPCS: A9500; J2785

== ENCOUNTER 2019-11-28 13:54 | Outpatient (CLI) | payer OTHER ==
[2019-11-28 14:44] LABS: PLATELET COUNT 232 K/uL (142-355)
[2019-11-28 14:58] LABS: POTASSIUM 4.8 mmol/L (3.6-5.2)
== END 2019-11-28 23:57 | disposition home or self-care (01) ==
LOC: LAB 13:54
PROVIDERS: Internal Medicine
DX: E11.9 Type 2 diabetes mellitus without complications (principal)
CPT/HCPCS: 80053; 80061; 81000; 82043; 82570; 83036; 84439; 84443; 85027

== ENCOUNTER 2019-12-05 14:03 | Outpatient (CLI) | payer OTHER ==
[2019-12-05 15:36] LABS: POTASSIUM 4.3 mmol/L (3.6-5.2)
== END 2019-12-05 19:24 | disposition home or self-care (01) ==
LOC: LABW 14:03
PROVIDERS: Nurse Practitioner Adult Health
DX: I48.0 Paroxysmal atrial fibrillation (principal); R60.0 Localized edema
CPT/HCPCS: 36415; 80048

== ENCOUNTER 2020-01-08 08:49 | Outpatient (CLI) | payer OTHER ==
[2020-01-08 09:34] LABS: POTASSIUM 4.6 mmol/L (3.6-5.2)
[2020-01-08 10:09] LABS: PLATELET COUNT 229 K/uL (142-355)
== END 2020-01-08 19:09 | disposition home or self-care (01) ==
LOC: LABW 08:49
PROVIDERS: Specialist
DX: Z01.810 Encounter for preprocedural cardiovascular examination (principal); R93.1 Abnormal findings on diagnostic imaging of heart and coronary circulation; E78.49 Other hyperlipidemia
CPT/HCPCS: 36415; 80053; 80061; 85027

== ENCOUNTER 2020-01-15 09:20 | Outpatient (CLI) | payer OTHER ==
[2020-01-15 09:56] LABS: POTASSIUM 4.5 mmol/L (3.6-5.2)
== END 2020-01-15 22:27 | disposition home or self-care (01) ==
LOC: LABW 09:20
PROVIDERS: Nurse Practitioner Adult Health
DX: I25.10 Atherosclerotic heart disease of native coronary artery without angina pectoris (principal); E11.9 Type 2 diabetes mellitus without complications; Z79.899 Other long term (current) drug therapy
CPT/HCPCS: 36415; 80048

== ENCOUNTER 2020-02-14 09:23 | Outpatient (CLI) | payer OTHER ==
[2020-02-14 10:15] LABS: POTASSIUM 4.3 mmol/L (3.6-5.2)
== END 2020-02-14 20:42 | disposition home or self-care (01) ==
LOC: LABW 09:23
PROVIDERS: ATTEND Nurse Practitioner Adult Health
DX: E87.5 Hyperkalemia (principal); Z79.899 Other long term (current) drug therapy
CPT/HCPCS: 36415; 80048

== ENCOUNTER 2020-04-15 08:44 | Outpatient (CLI) | payer OTHER | END 2020-04-15 19:19 | disposition home or self-care (01) | LOC: LABW 08:44 | PROVIDERS: ATTEND Nurse Practitioner Adult Health | DX: E78.2 Mixed hyperlipidemia (principal); Z79.899 Other long term (current) drug therapy | CPT/HCPCS: 36415; 80061; 80076 ==

== ENCOUNTER 2020-04-30 07:28 | Outpatient (CLI) | payer OTHER ==
[2020-04-30 10:18] LABS: PLATELET COUNT 222 K/uL (142-355)
== END 2020-04-30 19:34 | disposition home or self-care (01) ==
LOC: LAB 07:28
PROVIDERS: ATTEND Internal Medicine
DX: U07.1 COVID-19 (principal); M79.10 Myalgia, unspecified site; Z11.59 Encounter for screening for other viral diseases
CPT/HCPCS: 36415; 85027; 87502; 87635; G2023; U0003

== ENCOUNTER 2020-10-09 09:15 | Outpatient (CLI) | payer OTHER | END 2020-10-09 21:27 | disposition home or self-care (01) | LOC: LABW 09:15 | PROVIDERS: ATTEND Nurse Practitioner Adult Health | DX: E78.2 Mixed hyperlipidemia (principal); Z79.899 Other long term (current) drug therapy | CPT/HCPCS: 36415; 80061; 80076 ==

== ENCOUNTER 2021-03-07 14:12 | Outpatient (CLI) | payer OTHER ==
[2021-03-07 14:37] LABS: PLATELET COUNT 231 K/uL (142-355)
[2021-03-07 14:50] LABS: POTASSIUM 4.3 mmol/L (3.6-5.2)
== END 2021-03-07 19:03 | disposition home or self-care (01) ==
LOC: LAB 14:12
PROVIDERS: ATTEND Internal Medicine
DX: E11.9 Type 2 diabetes mellitus without complications (principal)
CPT/HCPCS: 80053; 80061; 81000; 83036; 84439; 84443; 85027

== ENCOUNTER 2021-04-10 08:29 | Outpatient (CLI) | payer OTHER | END 2021-04-10 18:51 | disposition home or self-care (01) | LOC: LABW 08:29 | PROVIDERS: ATTEND Nurse Practitioner Adult Health | DX: E78.5 Hyperlipidemia, unspecified (principal) | CPT/HCPCS: 36415; 80061; 80076 ==

== ENCOUNTER 2021-07-18 10:28 | Outpatient (CLI) | payer OTHER ==
[2021-07-18 11:03] LABS: PLATELET COUNT 239 K/uL (142-355)
[2021-07-18 11:12] LABS: POTASSIUM 4.2 mmol/L (3.6-5.2)
== END 2021-07-18 20:30 | disposition home or self-care (01) ==
LOC: LABW 10:28
PROVIDERS: ATTEND Specialist
DX: R94.39 Abnormal result of other cardiovascular function study (principal); R82.998 Other abnormal findings in urine
CPT/HCPCS: 36415; 80048; 81000; 85027; 87077; 87086; 87088; 87186

== ENCOUNTER 2021-08-08 07:02 | Outpatient (CLI) | payer OTHER ==
[2021-08-08 08:43] LABS: PLATELET COUNT 240 K/uL (142-355)
[2021-08-08 09:33] LABS: POTASSIUM 4.7 mmol/L (3.6-5.2)
== END 2021-08-08 20:29 | disposition home or self-care (01) ==
LOC: LABW 07:02
PROVIDERS: ATTEND Internal Medicine
DX: E11.9 Type 2 diabetes mellitus without complications (principal)
CPT/HCPCS: 36415; 80053; 80061; 81000; 83036; 84439; 84443; 85027

== ENCOUNTER 2021-08-18 15:14 | Outpatient (CLI) | payer OTHER ==
[2021-08-18 15:33] LABS: PLATELET COUNT 231 K/uL (142-355)
== END 2021-08-18 19:02 | disposition home or self-care (01) ==
LOC: LABW 15:14
PROVIDERS: ATTEND Specialist
DX: Z01.810 Encounter for preprocedural cardiovascular examination (principal); I10 Essential (primary) hypertension
CPT/HCPCS: 36415; 85027

== ENCOUNTER 2021-08-21 01:32 | Emergency (ER) | payer OTHER ==
[~2021-08-21] VITALS: Ht 167.6 cm; Wt 93.0 kg
[2021-08-21 01:32] VITALS: TEMP 99
[2021-08-21 02:05] LABS: PLATELET COUNT 225 K/uL (142-355)
[2021-08-21 02:15] LABS: POTASSIUM 4.2 mmol/L (3.6-5.2)
[2021-08-21 02:23] LABS: PARTIAL THROMBOPLASTIN TIME 20.5 SECONDS (24.5-33.6)
[2021-08-21 05:02] VITALS: BP 101/47
== END 2021-08-21 05:37 | disposition home or self-care (01) ==
LOC: ED 01:32
PROVIDERS: Hospitalist
DX: R42 Dizziness and giddiness (principal); E86.0 Dehydration; E11.65 Type 2 diabetes mellitus with hyperglycemia; Z79.84 Long term (current) use of oral hypoglycemic drugs; Z98.890 Other specified postprocedural states; W18.39XA Other fall on same level, initial encounter; Y92.098 Other place in other non-institutional residence as the place of occurrence of the external cause
CPT/HCPCS: 36415; 80053; 80320; 82550; 83880; 84484; 85027; 85610; 85730; 93005; 96360; 96374; 96375; 99195; 99284; J1815

== ENCOUNTER 2021-10-28 12:11 | Outpatient (CLI) | payer OTHER ==
[2021-10-28 12:39] LABS: PLATELET COUNT 296 K/uL (142-355)
[2021-10-28 12:52] LABS: POTASSIUM 4.8 mmol/L (3.6-5.2)
== END 2021-10-28 19:06 | disposition home or self-care (01) ==
LOC: LAB 12:11
PROVIDERS: ATTEND Internal Medicine
DX: E11.9 Type 2 diabetes mellitus without complications (principal)
CPT/HCPCS: 80053; 80061; 83036; 85027

== ENCOUNTER 2021-10-29 10:06 | Emergency (ER) | payer OTHER ==
[~2021-10-29] VITALS: Ht 167.6 cm; Wt 93.0 kg
[2021-10-29 10:06] VITALS: TEMP 97.8
[2021-10-29 11:10] LABS: PLATELET COUNT 291 K/uL (142-355)
[2021-10-29 11:27] LABS: POTASSIUM 4.8 mmol/L (3.6-5.2)
[2021-10-29 14:13] VITALS: BP 127/52
== END 2021-10-29 16:52 | disposition short-term general hospital (02) ==
LOC: ED 10:14
PROVIDERS: Emergency Medicine Emergency Medical Services
PROC: 0T9B70Z Drainage of Bladder with Drainage Device, Via Natural or Artificial Opening (ICD-10-PCS; principal; 2021-10-29)
PROC: 30233N1 Transfusion of Nonautologous Red Blood Cells into Peripheral Vein, Percutaneous Approach (ICD-10-PCS; 2021-10-29)
DX: I50.9 Heart failure, unspecified (principal); D64.89 Other specified anemias; Z11.52 Encounter for screening for COVID-19
CPT/HCPCS: 36415; 36430; 51702; 80053; 81002; 82272; 82948; 83880; 84484; 85027; 85610; 86850; 86900; 86901; 86922; 87635; 93005; 96374; 99284; J1940; J7060; P9016; U0003

== ENCOUNTER 2021-11-04 15:32 | Inpatient (IN) | payer OTHER | END 2021-11-27 09:17 | disposition still patient (30) | LOC: PAVC 15:32 | PROVIDERS: ADMIT Internal Medicine; ATTEND Internal Medicine | DX: I50.9 Heart failure, unspecified (principal); K92.2 Gastrointestinal hemorrhage, unspecified; I48.91 Unspecified atrial fibrillation; M62.81 Muscle weakness (generalized); R26.2 Difficulty in walking, not elsewhere classified; R26.81 Unsteadiness on feet; Z74.1 Need for assistance with personal care | CPT/HCPCS: 87081 ==

== ENCOUNTER 2021-12-27 15:11 | Inpatient (IN) | payer OTHER ==
[2021-12-31 14:55] LABS: PLATELET COUNT 264 K/uL (142-355)
== END 2022-01-27 10:27 | disposition still patient (30) ==
LOC: PAVC 15:11
PROVIDERS: ADMIT Internal Medicine; ATTEND Internal Medicine
CPT/HCPCS: 81000; 85027; 87077; 87086; 87088; 87186

== ENCOUNTER 2022-01-06 13:24 | Outpatient (CLI) | payer OTHER ==
[~2022-01-06] VITALS: Ht 167.6 cm; Wt 77.6 kg
--- NOTE | 2022-01-06 15:20 | NUR ---
PATIENT HERE FOR INFUSION THERAPY VITAL SIGNS OBTAINED.AWAKE ALERT SALINE LOCK X THREE ATTEMPTS WITH SUCCESS.22 GAUDGE TO RT WRIST APPLIED TEGADERM TOLERATED WELL.CC
[2022-01-06 16:23] VITALS: BP 126/59; TEMP 98.3
--- NOTE | 2022-01-06 16:24 | NUR ---
IV ABX INFUSION COMPLETED AT THIS TIME. PT TOLERATED WELL. SL TO RT WRIST REMAINS INTACT WRAPPED WITH [facility]. PAV NOTIFIED PT READY TO GO BACK
--- NOTE | 2022-01-06 22:40 | NUR ---
PATIENT HERE FOR OUTPATIENT INFUSION OF CEFTAZIDIME 1GM/100 MLS OF NS AT THIS TIME. PATIENT ARRIVED VIA WHEELCHAIR PER [facility] STAFF. PATIENT ALERT AND ORIENTED AND NO ACUTE DISTRESS NOTED AT THIS TIME. VITAL SIGNS OBTAINED AND WITHIN NORMAL LIMITS BP-115/50, PULSE-75, RESP-18, OXYGEN SATURATION IS 96% ON ROOM AIR AND ORAL TEMP IS 98.8.
--- NOTE | 2022-01-06 22:50 | NUR ---
IV INFUSION STARTED AND INFUSING WITHOUT ANY DIFFICULTY. PATIENT TOLERATING WELL. CALL LIGHT WITHIN REACH. WILL CONTINUE TO MONITOR.
--- NOTE | 2022-01-06 23:25 | NUR ---
INFUSION COMPLETE AT THIS TIME. PATIENT TOLERATED WELL. IV SITE FLUSHED WITH 10 MLS OF NORMAL SALINE, ALCOHOL CAP APPLIED AND WRAPPED WITH [facility]. VITALS SIGNS OBTAINED AND WITHIN NORMAL LIMITS. BP-115/50, PULSE-75, RESP-18, TEMP 98.6 AND O2 SATURATION 96% ON ROOM AIR. PATIENT DENIES ANY COMPLAINTS. [facility] STAFF NOTIFIED THAT PATIENT IS READY TO RETURN AT THIS TIME.
--- NOTE | 2022-01-06 23:33 | NUR ---
PATIENT DISCHARGED VIA WHEELCHAIR WITH STAFF FROM [facility]. NO DISTRESS NOTED AT THIS TIME AND NO COMPLAINTS VOICED AT THIS TIME.
== END 2022-01-06 23:00 | disposition home or self-care (01) ==
LOC: INF 13:24
PROVIDERS: ATTEND Internal Medicine
DX: N39.0 Urinary tract infection, site not specified (principal); B96.89 Other specified bacterial agents as the cause of diseases classified elsewhere
CPT/HCPCS: 96365; 96366; J0713

== ENCOUNTER 2022-01-08 07:48 | Outpatient (CLI) | payer OTHER ==
[~2022-01-08] VITALS: Ht 168.9 cm; Wt 77.6 kg
[2022-01-08 14:56] VITALS: BP 109/51; TEMP 97.5
== END 2022-01-08 19:37 | disposition home or self-care (01) ==
LOC: INF 07:48
PROVIDERS: ATTEND Internal Medicine
DX: N39.0 Urinary tract infection, site not specified (principal)
CPT/HCPCS: 96365; 96366; J0713

== ENCOUNTER 2022-01-09 07:46 | Outpatient (CLI) | payer OTHER ==
[~2022-01-09] VITALS: Ht 167.6 cm; Wt 77.6 kg
[2022-01-09 08:47] VITALS: BP 114/47; TEMP 98.2
[2022-01-09 09:35] VITALS: BP 121/52; TEMP 98.4
[2022-01-09 15:34] VITALS: BP 119/57; TEMP 98.2
[2022-01-09 16:12] VITALS: BP 118/50; TEMP 98
== END 2022-01-09 20:30 | disposition home or self-care (01) ==
LOC: INF 07:46
PROVIDERS: ATTEND Internal Medicine
DX: N39.0 Urinary tract infection, site not specified (principal)
CPT/HCPCS: 96365; 96366; J0713

== ENCOUNTER 2022-01-10 08:23 | Outpatient (CLI) | payer OTHER ==
[~2022-01-10] VITALS: Ht 170.2 cm; Wt 77.6 kg
[2022-01-10 09:03] VITALS: BP 121/53; TEMP 98.3
[2022-01-10 15:30] VITALS: BP 130/62; TEMP 97.5
[2022-01-10 16:10] VITALS: BP 120/54; TEMP 98
== END 2022-01-10 21:41 | disposition home or self-care (01) ==
LOC: INF 08:23
PROVIDERS: ATTEND Internal Medicine
DX: N39.0 Urinary tract infection, site not specified (principal)
CPT/HCPCS: 96365; 96366; J0713

== ENCOUNTER 2022-01-11 08:28 | Outpatient (CLI) | payer OTHER ==
[~2022-01-11] VITALS: Ht 170.2 cm; Wt 77.6 kg
[2022-01-11 08:25] VITALS: BP 107/58; TEMP 98.3
[2022-01-11 09:20] VITALS: BP 110/50; TEMP 98
[2022-01-11 15:30] VITALS: BP 137/59; TEMP 98
[2022-01-11 16:25] VITALS: BP 125/58
== END 2022-01-11 19:03 | disposition home or self-care (01) ==
LOC: INF 08:28
PROVIDERS: ATTEND Internal Medicine
DX: N39.0 Urinary tract infection, site not specified (principal)
CPT/HCPCS: 96365; 96366; J0713

== ENCOUNTER 2022-01-12 06:53 | Outpatient (CLI) | payer OTHER ==
[~2022-01-12] VITALS: Ht 168.9 cm; Wt 77.6 kg
[2022-01-12 15:15] VITALS: BP 118/60; TEMP 98.4
[2022-01-12 15:58] VITALS: BP 117/57; TEMP 98.2
== END 2022-01-12 20:39 | disposition home or self-care (01) ==
LOC: INF 06:53
PROVIDERS: ATTEND Internal Medicine
DX: N39.0 Urinary tract infection, site not specified (principal)
CPT/HCPCS: 96365; 96366; J0713

== ENCOUNTER 2022-01-15 07:01 | Outpatient (CLI) | payer OTHER ==
[~2022-01-15] VITALS: Ht 168.9 cm; Wt 77.6 kg
[2022-01-15 06:48] VITALS: BP 134/61; TEMP 98.1
[2022-01-15 15:26] VITALS: BP 125/56; TEMP 98.4
[2022-01-15 15:54] VITALS: BP 128/62; TEMP 98.2
[2022-01-15 23:05] VITALS: BP 134/69; TEMP 97.9
[2022-01-15 23:33] VITALS: BP 104/69; TEMP 98.4
== END 2022-01-15 19:09 | disposition home or self-care (01) ==
LOC: INF 07:01
PROVIDERS: ATTEND Internal Medicine
DX: N39.0 Urinary tract infection, site not specified (principal)
CPT/HCPCS: 96365; 96366; J0713

== ENCOUNTER 2022-01-16 08:05 | Outpatient (CLI) | payer OTHER ==
[~2022-01-16] VITALS: Ht 168.9 cm; Wt 77.6 kg
[2022-01-16 09:20] VITALS: BP 121/61; TEMP 97.6
[2022-01-16 10:15] VITALS: BP 110/53; TEMP 98.2
== END 2022-01-16 18:50 | disposition home or self-care (01) ==
LOC: INF 08:05
PROVIDERS: ATTEND Internal Medicine
DX: N39.0 Urinary tract infection, site not specified (principal)
CPT/HCPCS: 96365; J0713

== ENCOUNTER 2022-01-27 10:52 | Inpatient (IN) | payer OTHER | END 2022-02-26 12:21 | disposition still patient (30) | LOC: PAVC 10:52 | PROVIDERS: ADMIT Internal Medicine; ATTEND Internal Medicine ==

== ENCOUNTER 2022-02-26 12:42 | Inpatient (IN) | payer OTHER | END 2022-03-29 10:58 | disposition still patient (30) | LOC: PAVC 12:42 | PROVIDERS: ADMIT Internal Medicine; ATTEND Internal Medicine ==

== ENCOUNTER 2022-03-29 14:41 | Inpatient (IN) | payer OTHER | END 2022-04-29 09:30 | disposition still patient (30) | LOC: PAVC 14:41 | PROVIDERS: ADMIT Internal Medicine; ATTEND Internal Medicine ==

== ENCOUNTER 2022-03-30 10:28 | Outpatient (CLI) | payer OTHER ==
[2022-03-30 11:04] LABS: POTASSIUM 3.9 mmol/L (3.6-5.2)
[2022-03-30 11:08] LABS: PLATELET COUNT 188 K/uL (142-355)
== END 2022-03-30 19:06 | disposition home or self-care (01) ==
LOC: LAB 10:28
PROVIDERS: ATTEND Internal Medicine
DX: I11.0 Hypertensive heart disease with heart failure (principal); I50.9 Heart failure, unspecified; E11.9 Type 2 diabetes mellitus without complications
CPT/HCPCS: 80053; 80061; 83036; 85027

== ENCOUNTER 2022-04-16 13:56 | Emergency (ER) | payer OTHER ==
[~2022-04-16] VITALS: Ht 168.9 cm; Wt 78.9 kg
[2022-04-16 13:56] VITALS: BP 176/86; TEMP 98
== END 2022-04-16 15:03 ==
LOC: ED 13:56
PROC: 0T9B70Z Drainage of Bladder with Drainage Device, Via Natural or Artificial Opening (ICD-10-PCS; principal; 2022-04-16)
DX: N40.1 Benign prostatic hyperplasia with lower urinary tract symptoms (principal); R33.8 Other retention of urine; N39.0 Urinary tract infection, site not specified; K64.8 Other hemorrhoids
CPT/HCPCS: 51702; 81000; 87077; 87086; 87088; 87186; 99283

== ENCOUNTER 2022-04-29 12:44 | Inpatient (IN) | payer OTHER | END 2022-05-27 15:24 | disposition still patient (30) | LOC: PAVC 12:44 | PROVIDERS: ADMIT Internal Medicine; ATTEND Internal Medicine ==

== ENCOUNTER 2022-05-15 15:40 | Outpatient (CLI) | payer OTHER | END 2022-05-15 21:25 | disposition home or self-care (01) | LOC: LAB 15:40 | PROVIDERS: ATTEND Internal Medicine | DX: R82.998 Other abnormal findings in urine (principal) | CPT/HCPCS: 81000; 87077; 87086; 87088; 87186 ==

== ENCOUNTER 2022-05-27 15:32 | Inpatient (IN) | payer OTHER | END 2022-06-27 12:27 | disposition still patient (30) | LOC: PAVC 15:32 | PROVIDERS: ADMIT Internal Medicine; ATTEND Internal Medicine ==

== ENCOUNTER 2022-06-27 12:43 | Inpatient (IN) | payer OTHER | END 2022-07-27 16:45 | disposition still patient (30) | LOC: PAVC 12:43 | PROVIDERS: ADMIT Internal Medicine; ATTEND Internal Medicine ==

== ENCOUNTER 2022-06-29 10:34 | Outpatient (CLI) | payer OTHER | END 2022-06-29 20:16 | disposition home or self-care (01) | LOC: LAB 10:34 | PROVIDERS: ATTEND Internal Medicine | DX: E11.9 Type 2 diabetes mellitus without complications (principal) | CPT/HCPCS: 83036 ==

== ENCOUNTER 2022-07-20 07:33 | Outpatient (CLI) | payer OTHER ==
[2022-07-20 08:13] LABS: PLATELET COUNT 205 K/uL (142-355)
[2022-07-20 08:30] LABS: POTASSIUM 4.8 mmol/L (3.6-5.2)
== END 2022-07-20 18:56 | disposition home or self-care (01) ==
LOC: LAB 07:33
PROVIDERS: ATTEND Internal Medicine
DX: I50.9 Heart failure, unspecified (principal)
CPT/HCPCS: 80053; 85027

== ENCOUNTER 2022-07-20 10:02 | Outpatient (CLI) | payer OTHER | END 2022-07-20 18:58 | disposition home or self-care (01) | LOC: RESP 10:02 | PROVIDERS: ATTEND Internal Medicine | DX: Z01.818 Encounter for other preprocedural examination (principal) | CPT/HCPCS: 93005 ==

== ENCOUNTER 2022-07-27 16:54 | Inpatient (IN) | payer OTHER | END 2022-08-27 12:39 | disposition still patient (30) | LOC: PAVC 16:54 | PROVIDERS: ADMIT Internal Medicine; ATTEND Internal Medicine ==

== ENCOUNTER 2022-08-21 12:27 | Outpatient (CLI) | payer OTHER ==
[2022-08-21 14:34] LABS: POTASSIUM 5.2 mmol/L (3.6-5.2)
== END 2022-08-21 18:59 | disposition home or self-care (01) ==
LOC: LAB 12:27
PROVIDERS: ATTEND Internal Medicine
DX: E11.9 Type 2 diabetes mellitus without complications (principal); I50.9 Heart failure, unspecified; I11.0 Hypertensive heart disease with heart failure; Z79.899 Other long term (current) drug therapy
CPT/HCPCS: 80048; 83735

== ENCOUNTER 2022-08-27 12:47 | Inpatient (IN) | payer OTHER | END 2022-09-26 17:45 | disposition still patient (30) | LOC: PAVC 12:47 | PROVIDERS: ADMIT Internal Medicine; ATTEND Internal Medicine ==

== ENCOUNTER 2022-09-28 09:41 | Outpatient (CLI) | payer OTHER ==
[2022-09-28 09:46] LABS: PLATELET COUNT 223 K/uL (142-355)
[2022-09-28 09:56] LABS: POTASSIUM 4.5 mmol/L (3.6-5.2)
== END 2022-09-28 19:27 | disposition home or self-care (01) ==
LOC: LAB 09:41
PROVIDERS: ATTEND Internal Medicine
DX: E11.9 Type 2 diabetes mellitus without complications (principal); I50.9 Heart failure, unspecified
CPT/HCPCS: 36415; 80053; 80061; 83036; 85027